=== PATIENT | male | born 1965 | race Caucasian/White ===

== ENCOUNTER 2019-05-25 17:53 | Emergency (ER) | payer BC ==
[2019-05-25] MEDS ORDERED: HYDROmorphone 1 MG/ML Syringe IM ONE (18:29)
[2019-05-25] MEDS ORDERED: Diphtheria,Pertussis(Acell),Tetanus Vaccine 0.5 ML SDV IM ONE (18:29)
--- NOTE | 2019-05-25 18:34 | EDM.PDOC ---
ED HPI GENERAL MEDICAL PROBLEM - General Chief Complaint: Laceration Stated Complaint: LEFT HAND THREE FINGERS CUT TABLE SAW Time Seen by Provider: 05/25/19 18:33 Source of Information: Reports: Patient, Old Records, RN History Limitations: Reports: No Limitations - History of Present Illness INITIAL COMMENTS - FREE TEXT/NARRATIVE: Got L hand in a table saw before arrival. Is not UTD on tetanus. Here for eval/ repair. Injury primarily to some of his finger tips. 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) - Related Data Allergies Allergy/AdvReac Type Severity Reaction Status Date / Time No Known Allergies Allergy Verified 05/25/19 18:12 Home Meds: Home Meds NK [No Known Home Meds] 05/25/19 [History] Past Medical History - Past Health History Medical/Surgical History: Denies Medical/Surgical History Social & Family History - Tobacco Use Smoking Status *Q: Never Smoker ED ROS GENERAL - Review of Systems Review Of Systems: See Below Constitutional: Reports: No Symptoms Skin: Reports: Diaphoresis (doesn't do well with the sight of his own blood.), Wound (distal aspects of index, long and ring fingers on right.) Neurological: Reports: No Symptoms ED EXAM, SKIN/RASH Exam: See Below Exam Limited By: No Limitations General Appearance: Alert, WD/WN, Mild Distress Eye Exam: Bilateral Eye: Normal Inspection Ears: Normal External Exam, Normal Canal, Hearing Grossly Normal Nose: Normal Inspection, No Blood Throat/Mouth: Normal Voice, No Airway Compromise Head: Atraumatic, Normocephalic Neck: Normal Inspection Respiratory/Chest: No Respiratory Distress, Lungs Clear, Normal Breath Sounds, No Accessory Muscle Use Cardiovascular: Regular Rate, Rhythm, No Edema Extremities: Other (injuries to distal right index, long and ring fingers. Unable to extend at DIP of long finger). No: Non-Tender Neurological: Alert, Oriented, CN II-XII Intact, Normal Cognition, No Motor/ Sensory Deficits Psychiatric: Normal Affect, Normal Mood Skin: Warm, Dry, Normal Color, No Rash, Wound/Incision (L index, long and ring fingers distally.) Location, Skin: Upper Extremity, Left Associated features: Tenderness ED SKIN PROCEDURES - Laceration/Wound Repair Left Hand Appearance: Subcutaneous, Irregular, Mildly Contaminated Distal NVT: Neuro & Vascular Intact Anesthetic Type: Local (4 ml of 2% lidocaine) Local Anesthesia - Lidocaine (Xylocaine): 2% Plain Local Anesthetic Volume: Other (20 cc) Skin Prep: Saline Exploration/Debridement/Repair: Wound Explored, Moderate Debridement Closed with: Sutures Lac/Wound length In cm: 2.6 Suture Size: 5-0 Suture Type: Nylon, Simple # of Sutures: 8 (5 on index and 3 on ring finger) Drain Placement: No Sterile Dressing Applied: Nurse Tetanus Status Addressed: Yes Complications: No Course - Vital Signs Text/Narrative:: fingers dressed by RN, the long finger was had the DIP jt splinted in full extension due to apparent disruption of the extensor tendon. Partial or complete nail removal accomplished on each of his fingers due to damage. Last Recorded V/S: Last Vital Signs Temp 35.7 C 05/25/19 18:21 Pulse 55 L 05/25/19 18:21 Resp 16 05/25/19 18:21 BP 131/88 05/25/19 18:21 Pulse Ox 95 05/25/19 18:21 - Orders/Labs/Meds Orders: Active Orders 24 hr Category Date Time Status Vaccines to be Administered [RC] PER UNIT ROUTINE Care 05/25/19 18:29 Active Hand Comp Min 3V Lt [CR] Stat Exams 05/25/19 18:18 Taken Meds: Medications Discontinued Medications Generic Name Dose Route Start Last Admin Trade Name Freq PRN Reason Stop Dose Admin Bacitracin 3 dose 05/25/19 19:57 Bacitracin Oint 1 Gm TOP 05/25/19 19:58 ONETIME ONE Diphtheria/Tetanus/Acell Pertussis 0.5 ml 05/25/19 18:29 05/25/19 18:43 Adacel IM 05/25/19 18:30 0.5 ml .ONCE ONE Administration Hydromorphone HCl 1 mg 05/25/19 18:29 05/25/19 18:41 Dilaudid IM 05/25/19 18:30 1 mg ONETIME ONE Administration Lidocaine HCl 20 ml 05/25/19 18:37 05/25/19 18:56 Xylocaine 2% SUBCUT 05/25/19 18:38 20 ml ONETIME ONE Administration - Radiology Interpretation Free Text/Narrative:: L hand X-ray-tuft fx of L index and a proximal long finger distal phalanx fx. Departure - Departure Time of Disposition: 20:20 Disposition: Home, Self-Care 01 Condition: Fair Clinical Impression: Closed fracture of tuft of distal phalanx of finger, Extensor tendon disruption Finger laceration Qualifiers: Encounter type: initial encounter Finger: index finger Damage to nail status: with damage Foreign body presence: without foreign body Laterality: left Qualified Code(s): S61.311A - Laceration without foreign body of left index finger with damage to nail, initial encounter Laceration of finger of left hand Qualifiers: Encounter type: initial encounter Finger: ring finger Damage to nail status: with damage Foreign body presence: without foreign body Qualified Code(s): S61.315A - Laceration without foreign body of left ring finger with damage to nail, initial encounter - Discharge Information *PRESCRIPTION DRUG MONITORING PROGRAM REVIEWED*: No *COPY OF PRESCRIPTION DRUG MONITORING REPORT IN PATIENT MARQUIS: No Instructions: Laceration Care, Adult Referrals: PCP,None [Primary Care Provider] - Forms: ED Department Discharge Additional Instructions: Keep fingers elevated, clean, and dry. Take ibuprofen and acetaminophen as needed for pain relief, substitute [place] for acetaminophen as needed. Take cephalexin as directed to prevent infection. Wear splint at all times. Follow up with orthopedics later this week. If you can keep the dressings clean you can leave them on until you see orthopedics. Sepsis Event Note - Evaluation Sepsis Screening Result: No Definite Risk - Focused Exam Vital Signs: Vital Signs Temp Pulse Resp BP Pulse Ox 05/25/19 18:21 35.7 C 55 L 16 131/88 95 05/25/19 18:08 35.7 C 55 L 16 131/88 95 Date Exam was Performed: 05/25/19 Time Exam was Performed: 19:58 - My Orders Last 24 Hours: My Active Orders 05/25/19 18:18 Hand Comp Min 3V Lt [CR] Stat 05/25/19 18:29 Vaccines to be Administered [RC] PER UNIT ROUTINE - Assessment/Plan Last 24 Hours: My Active Orders 05/25/19 18:18 Hand Comp Min 3V Lt [CR] Stat 05/25/19 18:29 Vaccines to be Administered [RC] PER UNIT ROUTINE
[2019-05-25] MEDS ORDERED: Lidocaine 2% 20 ML MDV SUBCUT ONE (18:37)
[2019-05-25] MEDS ORDERED: Bacitracin Oint 1 GM U/D Packet TOP ONE (19:57)
--- NOTE | 2019-05-26 10:11 | CR ---
Hand Comp Min 3V Lt CLINICAL HISTORY: Trauma FINDINGS: Patient is soft tissue lacerations and partial indications of the second through fourth digits. The there is a tuft fracture of the second distal phalanx. There is a small ossification just dorsal to the base of the third distal phalanx suspect for marginal fracture. IMPRESSION: Soft tissue disruption of the second through fourth distal digits Tuft fracture second distal phalanx Marginal fracture through the base of the third distal phalanx
== END 2019-05-25 20:50 | disposition home or self-care (01) ==
LOC: JP.ED 17:53
DX: S62.631A Displaced fracture of distal phalanx of left index finger, initial encounter for closed fracture (principal); S62.615A Displaced fracture of proximal phalanx of left ring finger, initial encounter for closed fracture; S61.315A Laceration without foreign body of left ring finger with damage to nail, initial encounter; Z23 Encounter for immunization; W27.0XXA Contact with workbench tool, initial encounter
CPT/HCPCS: 11730; 11732; 12002; 73130; 90471; 90715; 96372; 99283; J1170; J2001